=== PATIENT | female | born 1970 | race Hispanic/Latino ===

== ENCOUNTER → 2019-02-09 | Outpatient (CLI) | payer BC | END | disposition home or self-care (01) | LOC: RAH 14:35 | PROVIDERS: ATTEND Nurse Practitioner Adult Health | DX: Z12.31 Encounter for screening mammogram for malignant neoplasm of breast (principal) | CPT/HCPCS: 77067 ==

== ENCOUNTER → 2020-07-22 | Outpatient (CLI) | payer BC | END | disposition home or self-care (01) | LOC: RAH 11:01 | PROVIDERS: ATTEND Nurse Practitioner Adult Health | DX: Z12.31 Encounter for screening mammogram for malignant neoplasm of breast (principal); Z00.01 Encounter for general adult medical examination with abnormal findings | CPT/HCPCS: 77067 ==

== ENCOUNTER → 2020-08-15 | Outpatient (CLI) | payer OTHER | END | disposition home or self-care (01) | LOC: RAH 07:28 | PROVIDERS: ATTEND Nurse Practitioner Adult Health | DX: M51.17 Intervertebral disc disorders with radiculopathy, lumbosacral region (principal); M48.05 Spinal stenosis, thoracolumbar region | CPT/HCPCS: 72148 ==

== ENCOUNTER → 2023-02-02 | Outpatient (CLI) | payer BC | END | disposition home or self-care (01) | LOC: RAH 15:26 | PROVIDERS: ATTEND Internal Medicine | DX: Z12.31 Encounter for screening mammogram for malignant neoplasm of breast (principal) | CPT/HCPCS: 77067 ==

== ENCOUNTER → 2024-12-24 | Outpatient (CLI) | payer BC | END | disposition home or self-care (01) | LOC: RAH 15:37 | PROVIDERS: ATTEND Family Medicine | DX: Z12.31 Encounter for screening mammogram for malignant neoplasm of breast (principal) | CPT/HCPCS: 77067 ==